=== PATIENT | female | born 1975 | race Caucasian/White ===

== ENCOUNTER 2023-06-27 22:15 | Outpatient (CLI) | payer OTHER | END 2023-06-27 23:59 | disposition short-term general hospital (02) | LOC: EMS 22:15 | DX: M25.551 Pain in right hip (principal); M79.604 Pain in right leg; W01.198A Fall on same level from slipping, tripping and stumbling with subsequent striking against other object, initial encounter; Y92.008 Other place in unspecified non-institutional (private) residence as the place of occurrence of the external cause | CPT/HCPCS: A0425; A0427 ==

== ENCOUNTER 2024-03-12 08:00 | Outpatient (CLI) | payer OTHER | END 2024-03-12 23:59 | disposition home or self-care (01) | LOC: LAB.N 08:00 | PROVIDERS: ATTEND Physician Assistant Medical | DX: R35.0 Frequency of micturition (principal) | CPT/HCPCS: 87086 ==